=== PATIENT | male | born 1985 | race Caucasian/White ===

== ENCOUNTER 2016-08-12 06:08 | Emergency (ER) | payer OTHER ==
[2016-08-12 08:05] LABS: RED BLOOD COUNT 4.61 M/UL (4.20-5.50); WHITE BLOOD COUNT 7.8 K/UL (4.5-11.0)
[2016-08-12 08:28] LABS: BUN/CREATININE RATIO 17 (0-10)
== END 2016-08-12 10:55 | disposition home or self-care (01) ==
LOC: ER1 06:08
PROVIDERS: Physician Assistant
DX: J20.8 Acute bronchitis due to other specified organisms (principal); B34.9 Viral infection, unspecified
CPT/HCPCS: 36415; 71020; 80053; 81001; 82272; 83690; 85025; 99283; J7030